=== PATIENT | male | born 1980 | race Caucasian/White ===

== ENCOUNTER 2024-02-06 16:16 | Emergency (ER) | payer OTHER, SELFPAY ==
--- NOTE | 2024-02-06 16:28 | ED_ITS ---
HPI - Altered Mental Status General Stated Complaint: CARDIAC ARREST Time Seen by Provider: 02/06/24 16:27 History of Present Illness HPI narrative: Patient presents to ED in cardio resp arrest. He was brought in by EMS from home. He has a trach in place from a previous recent pneumonia. Patient was found to be in respiratory arrest and in PEA for most of the time. EMS states that they were able to get pulses back a couple of times but he promptly lost them again. They gave 6 at the, 1 bicarb, calcium and Narcan with really no change. Upon arrival patient had been down for almost 1 hour. Pupils were fixed and dilated. Patient is obese with a trach in place. He was being adequately bagged through the trach. Blood glucose was greater than 100. Once family arrived the daughter said that She heard a thump in the house and realized that he fell out of bed. When she went to check on him he said he was having trouble breathing so she called 911. When she went back to check on him he was no longer responding to her but she could not open the door because he had fallen against the door and she could not get through at first. EMS arrived on scene and were able to get in and started CPR immediately. Patient was brought into ED for further care. ACLS protocol was continued Review of Systems ROS Status of ROS unobtainable due to endotracheal tube, unobtainable due to medical condition and unobtainable due to mental status Exam Narrative Exam Narrative: General: [Unresponsive.] Vital Signs: [Per code sheet.] Skin: [Cool, pale.] Head: [Normocephalic, atraumatic.] Neck: [Trachea midline.]Trach in place Eye: [Pupils fixed and unresponsive.] Ears, nose, mouth and throat: [Airway in place.] Cardiovascular: [No spontaneous cardiac activity.] Respiratory: [No spontaneous breath sounds, equal BS with bagging.] Chest wall: [No deformity.] Musculoskeletal: [Flaccid.] Gastrointestinal: [Soft, non distended, absent bowel sounds.] Genitourinary: [NPsychiatric: [] Aidan coma scale: [Eye response: 1/4, verbal response: 1/5, motor response: 1/6, Total score: Total score: 3.] MDM - Altered Mental Status MDM Narrative Medical decision making narrative: ACLS protocol was followed. Patient received multiple rounds of epi here as well as bicarb and magnesium. We did get ROSC 1 time after epi but he quickly became bradycardic and lost pulses again. High-quality CPR was maintained throughout. Patient's pupils were fixed and dilated. Final epinephrine elicited no response cardiac sanders and time of was called at 4:13 PM. Family was counseled in the consult room and updated on results. Critical Care Time Critical Care Time Critical Care Time: Yes Total Critical Care Time: 45 Attestation: Cardiopulmonary arrest. CPR. Speaking with family. Speaking to helpdesk technician Discharge Plan Discharge Patient Disposition: Date/Time: 02/06/24 16:13 Discharge Date/Time: 02/06/24 18:44
--- NOTE | 2024-02-06 16:39 | PC.NURSE ---
02/06/24 1559 pt arrived to ER unresponsive, CPR in progress, code blue called prior to pt arrival. Staff at bedside and CPR continued upon transfer to ER bed. see code blue sheets for charting. no ROSC obtained during resuscitation attempt. pt ABIMAELD called at [id number]. pt son notified by dr lal in conference room. pt will be released to [facility], [facility] called, due to pt size will not be eligable for donation. case referral number [id number]. Ty Cannon RN
--- NOTE | 2024-02-06 17:01 | PC.NURSE ---
02/06/24 1701 [facility] office clerical investigator arrived and observing pt at this time. Ty Cannon RN
--- NOTE | 2024-02-06 17:46 | PC.NURSE ---
02/06/24 2086 pt family at bedside, denies any needs or requests at this time. 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 Ty Cannon RN
--- NOTE | 2024-02-06 18:29 | PC.NURSE ---
02/06/24 1830 [employer] office staff arrived and prepping pt for transport to facility. Ty Cannon RN
== END 2024-02-06 18:44 | disposition expired ==
PROVIDERS: Emergency Provider Emergency Medicine
DX: I46.9 Cardiac arrest, cause unspecified (principal); E66.9 Obesity, unspecified; Z93.0 Tracheostomy status; Z87.01 Personal history of pneumonia (recurrent)
CPT/HCPCS: 92950; 99291; J0171; J3475